=== PATIENT | male | born 1950 | race Two or more races ===

== ENCOUNTER 2022-08-19 17:16 | Inpatient (IN) | payer MEDICARE, MEDICAID ==
[~2022-08-19] VITALS: Ht 165.1 cm; Wt 69.9 kg
[2022-08-19] MEDS ORDERED: LEVETIRACETAM 1000MG PREMIX 100 ML IV ONE (17:45)
[2022-08-19 19:32] LABS: BASOPHILS % 0.8 % (0.0-2.0); EOSINOPHILS % 3.9 % (0.0-5.0); HEMATOCRIT. 40.2 % (42.0-52.0); HEMOGLOBIN. 13.5 g/dL (14.0-18.0); LYMPHOCYTES % 9.9 % (20.0-50.0); MEAN CORPUSCULAR HEMOGLOBIN 32.6 pg (28.0-32.0); MEAN CORPUSCULAR VOLUME 96.8 fL (80.0-94.0); MEAN PLATELET VOLUME 8.3 fl (7.4-10.4); MONOCYTES % 9.3 % (2.0-8.0); NEUTROPHILS % 76.1 % (40.0-76.0); PLATELET 123 x1000/uL (130-400); RED BLOOD CELL COUNT 4.15 mill/uL (4.7-6.1); RED CELL DISTRIBUTION WIDTH 13.4 % (11.6-14.6)
[2022-08-19 19:39] LABS: INR 1.7; PROTHROMBIN TIME 17.2 sec (9.6-11.0)
[2022-08-19 19:41] LABS: CHLORIDE 104 mEq/L (98-107)
[2022-08-19 19:51] LABS: CREATINE KINASE 275 IU/L (39-308); ETHANOL BLOOD < 10 mg/dL
[2022-08-19] MEDS ORDERED: MAGNESIUM/ALUMINUM HYDROXIDE/SIMETHICONE 30ML UDC PO PRN (23:15)
[2022-08-19] MEDS ORDERED: CLONIDINE 0.1MG TABLET PO PRN (23:15)
[2022-08-19] MEDS ORDERED: LEVETIRACETAM 500 MG in SODIUM CHLORIDE 0.9% 100 ML IV SCH (23:15)
[2022-08-19] MEDS ORDERED: ACETAMINOPHEN 325MG TABLET PO PRN ×2 (23:15)
[2022-08-19] MEDS ORDERED: IPRATROPIUM/ALBUTEROL 0.5-3(2.5)MG/3ML NEB NEB PRN (23:15)
[2022-08-19] MEDS ORDERED: ENOXAPARIN 40MG/0.4ML SYR SUBCUT SCH (23:15)
[2022-08-19] MEDS ORDERED: LORAZEPAM 2MG/ML CPJ IV PRN (23:15)
[2022-08-20 02:23] LABS: CLARITY URINE CLEAR (CLEAR); COLOR URINE YELLOW (YELLOW); KETONES URINE 1+ (NEGATIVE); LEUKOCYTE ESTERASE URINE NEGATIVE (NEGATIVE); NITRITE URINE NEGATIVE (NEGATIVE); OCCULT BLOOD URINE 3+ (NEGATIVE); PROTEIN URINE NEGATIVE (NEGATIVE); SPECIFIC GRAVITY URINE 1.021 (1.005-1.030); UROBILINOGEN URINE 0.2 E.U./dL (0.2-1.0)
[2022-08-20 02:48] LABS: *AMPHETAMINES SCREEN URINE NEGATIVE (NEGATIVE); *BARBITURATES SCREEN URINE NEGATIVE (NEGATIVE); *BENZODIAZEPINES SCREEN URINE NEGATIVE (NEGATIVE); *COCAINE SCREEN URINE NEGATIVE (NEGATIVE); CANNABINOID URINE SCREEN NEGATIVE (NEGATIVE); METHADONE URINE SCREEN NEGATIVE (NEGATIVE); OPIATES URINE SCREEN NEGATIVE (NEGATIVE); PHENCYCLIDINE URINE SCREEN NEGATIVE (NEGATIVE)
[2022-08-20 03:02] LABS: FOLIC ACID (FOLATE) SERUM 13.8 ng/mL (>5.38)
[2022-08-20] MEDS: DEXT 5%/0.45% NACL 1000ML 1,000 ML IV SCH ×2 (04:51→13:24)
[2022-08-20 06:02] LABS: HEMOGLOBIN. 13.3 g/dL (14.0-18.0); MEAN CORPUSCULAR HEMOGLOBIN 32.9 pg (28.0-32.0); MEAN CORPUSCULAR VOLUME 96.6 fL (80.0-94.0); PLATELET 112 x1000/uL (130-400); RED BLOOD CELL COUNT 4.04 mill/uL (4.7-6.1); RED CELL DISTRIBUTION WIDTH 13.7 % (11.6-14.6)
[2022-08-20 06:12] LABS: CHLORIDE 103 mEq/L (98-107)
[2022-08-20 06:29] LABS: HDL CHOLESTEROL 53 mg/dL (40-59); LDL CHOLESTEROL 86 mg/dL (5-100); T4 FREE 1.23 ng/dL (0.76-1.46); TOTAL IRON BINDING CAPACITY 286 ug/dL (250-450)
[2022-08-20] MEDS ORDERED: FAMOTIDINE 20MG/2ML VIAL IV SCH (09:00)
[2022-08-20 10:20] VITALS: BP 110/66
[2022-08-20 12:00] VITALS: BP 110/52
[2022-08-20 12:32] LABS: PLATELET ESTIMATE NORMAL
[2022-08-20] MEDS: LEVETIRACETAM 500MG PREMIX 100 ML IV SCH ×2 (13:24→21:51)
[2022-08-20] MEDS ORDERED: IPRATROPIUM BROMIDE (0.02%) 0.5MG/2.5ML NEB HHN PRN (14:15)
[2022-08-20] MEDS ORDERED: ALBUTEROL (0.083%) 2.5MG/3ML NEB HHN PRN (14:15)
[2022-08-20 16:00] VITALS: BP 113/50
[2022-08-20 20:00] VITALS: BP 127/82
[2022-08-20] MEDS ORDERED: ENOXAPARIN 40MG/0.4ML SYR SUBCUT SCH (21:00)
[2022-08-21] VITALS: BP 118/71
[2022-08-21 04:00] VITALS: BP 128/61
[2022-08-21] MEDS: DEXT 5%/0.45% NACL 1000ML 1,000 ML IV SCH ×2 (06:40→16:20)
[2022-08-21 07:24] LABS: INR 1.5; PROTHROMBIN TIME 15.5 sec (9.6-11.0)
[2022-08-21 08:00] VITALS: BP 132/68
[2022-08-21] MEDS ORDERED: TAMS-11 MT (08:43)
[2022-08-21] MEDS ORDERED: SACU1TAB MT (08:43)
[2022-08-21] MEDS ORDERED: COR6 MT (08:43)
[2022-08-21] MEDS ORDERED: EMPA10TA MT (08:43)
[2022-08-21] MEDS ORDERED: [UNRECOGNIZED DRUG - CODE] MT (08:43)
[2022-08-21] MEDS ORDERED: WARF-53 MT (08:43)
[2022-08-21] MEDS ORDERED: DEXTROSE 50% WATER 50ML SYRINGE IV PRN (08:45)
[2022-08-21] MEDS: APIXABAN 2.5 MG TABLET PO SCH ×2 (09:22→18:29)
[2022-08-21] MEDS: LEVETIRACETAM 500MG PREMIX 100 ML IV SCH ×2 (09:22→21:02)
[2022-08-21 12:00] VITALS: BP 119/57
[2022-08-21] MEDS: BLOOD SUGAR DIAGNOSTIC STRIP TEST SCH ×3 (12:40→20:59)
[2022-08-21] MEDS: INSULIN LISPRO 100 UNITS/ML SUBCUT SCH ×3 (13:07→21:00)
[2022-08-21 16:00] VITALS: BP 112/76
[2022-08-21 20:00] VITALS: BP 126/65
[2022-08-22] VITALS: BP 147/78
[2022-08-22 04:00] VITALS: BP 113/66
[2022-08-22] MEDS: APIXABAN 2.5 MG TABLET PO SCH ×2 (05:12→17:14)
[2022-08-22] MEDS: DEXT 5%/0.45% NACL 1000ML 1,000 ML IV SCH ×2 (05:12→17:16)
[2022-08-22] MEDS: BLOOD SUGAR DIAGNOSTIC STRIP TEST SCH ×4 (06:46→20:41)
[2022-08-22 08:00] VITALS: BP 153/77
[2022-08-22] MEDS: INSULIN LISPRO 100 UNITS/ML SUBCUT SCH ×4 (08:10→20:41)
[2022-08-22] MEDS: ASPIRIN 81MG EC TABLET PO SCH ×2 (08:35→08:38)
[2022-08-22] MEDS: AMLODIPINE 10MG TABLET PO SCH ×2 (08:35→08:39)
[2022-08-22] MEDS: FAMOTIDINE 20MG TABLET PO SCH (08:35)
[2022-08-22] MEDS: LEVETIRACETAM 500MG TABLET PO SCH ×2 (08:36→20:41)
[2022-08-22 12:32] VITALS: BP 128/65
[2022-08-22 17:11] VITALS: BP 118/73
[2022-08-22 20:00] VITALS: BP 115/68
[2022-08-23] VITALS: BP 111/50
[2022-08-23 04:00] VITALS: BP 114/58
[2022-08-23] MEDS: APIXABAN 2.5 MG TABLET PO SCH (06:10)
[2022-08-23] MEDS: BLOOD SUGAR DIAGNOSTIC STRIP TEST SCH (06:12)
[2022-08-23] MEDS: DEXT 5%/0.45% NACL 1000ML 1,000 ML IV SCH (06:14)
[2022-08-23] MEDS: INSULIN LISPRO 100 UNITS/ML SUBCUT SCH (08:10)
[2022-08-23] MEDS: FAMOTIDINE 20MG TABLET PO SCH (08:12)
[2022-08-23] MEDS: AMLODIPINE 10MG TABLET PO SCH (08:12)
[2022-08-23] MEDS: LEVETIRACETAM 500MG TABLET PO SCH (08:12)
[2022-08-23] MEDS: ASPIRIN 81MG EC TABLET PO SCH (08:12)
[2022-08-23] MEDS ORDERED: XAR15 MT (10:04)
[2022-08-23] MEDS ORDERED: LEVE750T4 MT (10:04)
[2022-08-23] MEDS ORDERED: FAMO-135 MT (10:04)
[2022-08-23 10:23] VITALS: BP 135/66
[2022-08-23] MEDS ORDERED: ENOXAPARIN 80MG/0.8ML SYR SUBCUT SCH (18:00)
== END 2022-08-23 12:25 | disposition home health service (06) | DRG 100 ==
LOC: ER 17:16 → MICUSO 22:14 → 7WST 08-20 10:31
PROVIDERS: ADMIT Internal Medicine; ATTEND Internal Medicine
DX: G40.909 Epilepsy, unspecified, not intractable, without status epilepticus (principal); G92.8 Other toxic encephalopathy; I50.40 Unspecified combined systolic (congestive) and diastolic (congestive) heart failure; I11.0 Hypertensive heart disease with heart failure; D69.6 Thrombocytopenia, unspecified; Z20.822 Contact with and (suspected) exposure to COVID-19; D64.9 Anemia, unspecified; R79.89 Other specified abnormal findings of blood chemistry; Z86.73 Personal history of transient ischemic attack (TIA), and cerebral infarction without residual deficits
CPT/HCPCS: 36415; 70551; 71045; 80053; 80061; 80305; 80320; 81003; 82550; 82607; 82746; 82962; 83036; 83540; 83550; 83880; 84439; 84443; 84484; 85025; 87426; 93005; 93306; 97162; 97166; 99285; J1650; J1953; J7050; A4315; G0480